=== PATIENT | male | born 1950 ===

== ENCOUNTER 2018-05-07 17:22 | Emergency (ER) | payer MEDICARE, OTHER ==
[2018-05-07 17:22] VITALS: BMI 27.7
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
[2018-05-07 19:34] VITALS: BP 132/70; PULSE 72; RESP 16; TEMP 98; O2SAT 98
--- NOTE | 2018-05-08 09:32 | RAD ---
Date of service: 05/07/2018 PROCEDURE: Radiographs of the Lumbar Spine. HISTORY: pain s/p fall. pt pushed tp floor COMPARISON: Lumbar spine radiographs 04/20/2012. FINDINGS: BONES: Patient seen to be status post inferior lumbar spinal fusion once again including intervertebral fusion L4-5 and L5-S1 and post spinal fusion hardware at the right from L5-S1 and from L4-S1 on the left. There is interval gross osteophyte development anteriorly at L3-4 with normal curvature preserved. No spondylolisthesis identified in the interval. Marked disc height loss is now present at L3-4 which was previously normal. Chronic limited compression fracture of T11 and potentially T12 unchanged. No interval lytic or blastic destructive lesion appreciable. No apparent spondylolysis. Multilevel facet joint degenerative arthropathy identified. DISC SPACES: As above. OTHER FINDINGS: None. IMPRESSION: Interval gross spondylosis L3-4 as well as disc height loss. Stable appearing intervertebral and posterior spinal fusion as discussed above. No interval fracture, spondylolysis or spondylolisthesis appreciated.
== END 2018-05-07 19:32 | disposition home or self-care (01) ==
LOC: H.ER 17:22
DX: M54.5 Low back pain (principal); I10 Essential (primary) hypertension